=== PATIENT | female | born 1945 | race Caucasian/White ===

== ENCOUNTER 2016-05-29 20:42 | Inpatient (IN) | payer MEDICARE, OTHER ==
[~2016-05-29] VITALS: Ht 154.9 cm; Wt 93.0 kg
[~2016-05-29 20:42] MED LIST: BACTROBAN22 GM TOP; CARDIZEM CD360 MG PO; FISH OIL 1,0001 EACH PO; HYDROCODON-ACE1 EAC4 PO; LEVEMIR100 UNIT/1 SC; LIPITOR10 MG PO; LOPRESSOR 25 MG25 MG PO; NOVOLOG 10100 UNITS/ SC; PRILOSEC20 MG PO; TRICOR145 MG PO; VANCOMYCIN750 MG/150 IV; VITAMIN D1000 UNI1 PO; ZESTRIL10 MG PO; ZOFRAN4 MG PO; ZOLOFT100 MG PO
[2016-05-29 23:39] LABS: HEMOGLOBIN 12.7 gm/dl (12.3-15.3); RED BLOOD COUNT 4.26 M/UL (4.00-5.10); WHITE BLOOD COUNT 18.8 K/UL (4.5-11.0)
[2016-05-30] MEDS ORDERED: COZAAR50 MG PO (11:45)
[2016-05-31 05:45] LABS: HEMOGLOBIN 11.5 gm/dl (12.3-15.3); WHITE BLOOD COUNT 16.5 K/UL (4.5-11.0)
[2016-05-31 05:50] LABS: RED BLOOD COUNT 3.8 M/UL (4.00-5.10)
[2016-06-01 06:05] LABS: HEMOGLOBIN 10.6 gm/dl (12.3-15.3); RED BLOOD COUNT 3.62 M/UL (4.00-5.10); WHITE BLOOD COUNT 12.8 K/UL (4.5-11.0)
[2016-06-02] MEDS ORDERED: LEVAQUIN500 MG PO (15:38)
== END 2016-06-02 18:00 | disposition home or self-care (01) | DRG 193 ==
LOC: ER1 20:42 → MED SURG 4 05-30 08:52 → ZEROF 05-30 08:52 → MED SURG 4 05-30 20:20
PROVIDERS: Emergency Medicine; Family Medicine; ADMIT Internal Medicine Pulmonary Disease
DX: J18.9 Pneumonia, unspecified organism (principal); J96.01 Acute respiratory failure with hypoxia; N17.9 Acute kidney failure, unspecified; E87.6 Hypokalemia; E11.65 Type 2 diabetes mellitus with hyperglycemia; I12.9 Hypertensive chronic kidney disease with stage 1 through stage 4 chronic kidney disease, or unspecified chronic kidney disease; N18.3 Chronic kidney disease, stage 3 (moderate); G47.33 Obstructive sleep apnea (adult) (pediatric); E78.5 Hyperlipidemia, unspecified; E66.9 Obesity, unspecified; Z68.38 Body mass index [BMI] 38.0-38.9, adult; Z87.891 Personal history of nicotine dependence; Z79.82 Long term (current) use of aspirin; Z79.4 Long term (current) use of insulin; Z79.899 Other long term (current) drug therapy; Z88.3 Allergy status to other anti-infective agents; Z88.0 Allergy status to penicillin; Z88.8 Allergy status to other drugs, medicaments and biological substances; Z90.710 Acquired absence of both cervix and uterus; Z90.49 Acquired absence of other specified parts of digestive tract; Z98.890 Other specified postprocedural states; Z82.49 Family history of ischemic heart disease and other diseases of the circulatory system; Z83.3 Family history of diabetes mellitus
CPT/HCPCS: 36415; 36600; 71010; 71020; 71250; 80048; 80053; 82803; 82962; 83036; 83605; 83880; 84443; 84484; 85025; 85027; 85610; 85730; 87040; 87070; 87205; 93005; 94640; 94664; 96365; 96366; 96375; 96376; 99285; J1815; J1956; J2405; J7030; Q0162

== ENCOUNTER → 2016-06-22 | Outpatient (CLI) | payer MEDICARE, OTHER ==
[~2016-06-22] MED LIST changes: +COZAAR50 MG PO; +LEVAQUIN500 MG PO
== END ==
LOC: RAD 10:42
DX: J18.9 Pneumonia, unspecified organism (principal)
CPT/HCPCS: 71020

== ENCOUNTER → 2020-06-14 | Outpatient (CLI) | payer MEDICARE, OTHER ==
[~2020-06-14] MED LIST changes: +ASPIRIN81 MG PO; +ATORVASTATIN CA20 MG PO; +LASIX40 MG PO; +PULMICORT FLEX90 MCG INH; +REGLAN10 MG PO; +VENTOLIN HFA 66.7 GM INH
== END ==
LOC: WCC 09:00
DX: E11.628 Type 2 diabetes mellitus with other skin complications (principal); I89.0 Lymphedema, not elsewhere classified; E11.40 Type 2 diabetes mellitus with diabetic neuropathy, unspecified; E66.01 Morbid (severe) obesity due to excess calories
CPT/HCPCS: G0463

== ENCOUNTER 2020-08-14 00:28 | Emergency (ER) | payer MEDICARE, OTHER ==
[~2020-08-14 00:28] MED LIST changes: -REGLAN10 MG PO
[2020-08-14 01:50] LABS: HEMOGLOBIN 13.9 gm/dl (12.3-15.3); RED BLOOD COUNT 4.65 M/UL (4.00-5.10); WHITE BLOOD COUNT 10.8 K/UL (4.5-11.0)
[2020-08-14] MEDS ORDERED: REGLAN10 MG PO (06:09)
== END 2020-08-14 06:20 | disposition home or self-care (01) ==
LOC: ER1 00:28
PROVIDERS: Student in an Organized Health Care Education/Training Program
DX: R11.2 Nausea with vomiting, unspecified (principal); R19.7 Diarrhea, unspecified; E11.9 Type 2 diabetes mellitus without complications; I10 Essential (primary) hypertension; Z90.49 Acquired absence of other specified parts of digestive tract; Z88.0 Allergy status to penicillin; Z88.1 Allergy status to other antibiotic agents; Z20.822 Contact with and (suspected) exposure to COVID-19
CPT/HCPCS: 0240U; 36600; 71045; 80053; 81001; 82550; 82553; 82803; 82962; 83605; 83690; 83735; 83874; 83880; 84100; 84484; 85025; 93005; 94760; 96374; 96375; 99285; J2405; J2765; Q9965

== ENCOUNTER 2021-02-09 11:13 | Inpatient (IN) | payer MEDICARE, OTHER ==
[~2021-02-09] VITALS: Ht 157.5 cm; Wt 93.0 kg
[~2021-02-09 11:13] MED LIST changes: +OMEPRAZOLE20 MG PO; -PRILOSEC20 MG PO; +REGLAN10 MG PO
[2021-02-09] MEDS ORDERED: ASPIRIN81 MG PO (12:11)
[2021-02-09] MEDS ORDERED: DILTIAZEM ER180 M2 PO (12:12)
[2021-02-09] MEDS ORDERED: JANUVIA100 MG PO (12:12)
[2021-02-09] MEDS ORDERED: TRAVOPROST2.5 ML OU (12:13)
[2021-02-09] MEDS ORDERED: LORATADINE10 MG PO (12:13)
[2021-02-09] MEDS ORDERED: ZINC50 M1 PO (12:14)
[2021-02-09] MEDS ORDERED: MAGNESIUM OXID420 MG PO (12:14)
[2021-02-09] MEDS ORDERED: VITAMIN C250 MG PO (12:15)
[2021-02-09] MEDS ORDERED: [UNRECOGNIZED DRUG - CODE] PO (12:17)
[2021-02-09 12:18] LABS: HEMOGLOBIN 13.6 gm/dl (12.3-15.3); RED BLOOD COUNT 4.51 M/UL (4.00-5.10); WHITE BLOOD COUNT 9.7 K/UL (4.5-11.0)
[2021-02-09] MEDS ORDERED: HYDRALAZINE HCL50 MG PO (12:18)
[2021-02-09] MEDS ORDERED: VITAMIN D350 MCG PO (12:18)
[2021-02-09] MEDS ORDERED: SPIRONOLACTONE25 MG PO (12:19)
[2021-02-09] MEDS ORDERED: VITAMIN D31250 MCG PO (12:19)
[2021-02-09] MEDS ORDERED: ISOSORBIDE MONO30 MG PO (12:19)
[2021-02-09] MEDS ORDERED: FARXIGA5 MG PO (12:20)
[2021-02-09] MEDS ORDERED: DULOXETINE HCL60 MG PO (12:20)
[2021-02-09] MEDS ORDERED: OXYBUTYNIN CHLOR5 MG PO (12:20)
[2021-02-09] MEDS ORDERED: HUMALOG100 UNIT/1 SQ (12:22)
[2021-02-09] MEDS ORDERED: V-GO 401 EACH MC (12:23)
[2021-02-09 13:12] LABS: BUN/CREATININE RATIO 11 (0-10)
[2021-02-10 07:26] LABS: HEMOGLOBIN 13.2 gm/dl (12.3-15.3); RED BLOOD COUNT 4.45 M/UL (4.00-5.10); WHITE BLOOD COUNT 7.5 K/UL (4.5-11.0)
--- NOTE | 2021-02-10 18:24 | NUR ---
SPOKE WITH DR JONES RELATED TO ELEVATED BLOOD GLUCOSE READINGS. PATIENT AGREES WITH REMOVING INSULIN PUMP AND USING SLIDING SCALE WHILE IN THE HOSPITAL. NEW ORDERS NOTED.
[2021-02-11] MEDS ORDERED: DECADRON6 MG PO (10:07)
== END 2021-02-11 18:33 | disposition home health service (06) | DRG 177 ==
LOC: ER1 11:13 → CDU 15:21 → M/S 17:35
PROVIDERS: Emergency Medicine; Physician Assistant Medical; ADMIT Internal Medicine
PROC: XW033E5 Introduction of Remdesivir Anti-infective into Peripheral Vein, Percutaneous Approach, New Technology Group 5 (ICD-10-PCS; principal; 2021-02-09)
PROC: 3E0333Z Introduction of Anti-inflammatory into Peripheral Vein, Percutaneous Approach (ICD-10-PCS; 2021-02-09)
PROC: 8E0ZXY6 Isolation (ICD-10-PCS; 2021-02-09)
PROC: 3E02340 Introduction of Influenza Vaccine into Muscle, Percutaneous Approach (ICD-10-PCS; 2021-02-09)
DX: U07.1 COVID-19 (principal); J12.82 Pneumonia due to coronavirus disease 2019; J96.01 Acute respiratory failure with hypoxia; N17.9 Acute kidney failure, unspecified; E87.6 Hypokalemia; E86.0 Dehydration; E03.9 Hypothyroidism, unspecified; E11.9 Type 2 diabetes mellitus without complications; E89.0 Postprocedural hypothyroidism; Z23 Encounter for immunization; E66.9 Obesity, unspecified; K21.9 Gastro-esophageal reflux disease without esophagitis; E78.5 Hyperlipidemia, unspecified; Z87.01 Personal history of pneumonia (recurrent); Z88.0 Allergy status to penicillin; Z88.1 Allergy status to other antibiotic agents; Z79.4 Long term (current) use of insulin; Z90.49 Acquired absence of other specified parts of digestive tract; Z90.710 Acquired absence of both cervix and uterus; Z82.49 Family history of ischemic heart disease and other diseases of the circulatory system; Z83.3 Family history of diabetes mellitus; Z79.82 Long term (current) use of aspirin; Z99.81 Dependence on supplemental oxygen; Z68.37 Body mass index [BMI] 37.0-37.9, adult
CPT/HCPCS: 36415; 36600; 71045; 80048; 80053; 82550; 82553; 82728; 82803; 82962; 83605; 83735; 83874; 83880; 84132; 84484; 85025; 85027; 85379; 86140; 87040; 90686; 93005; 94664; 94760; 96374; 99284; G0008; J1100; J1650; J7030; J7040; U0002

== ENCOUNTER 2021-02-14 21:04 | Emergency (ER) | payer MEDICARE, OTHER ==
[~2021-02-14 21:04] MED LIST changes: +DECADRON6 MG PO; +DILTIAZEM ER180 M2 PO; +DULOXETINE HCL60 MG PO; +FARXIGA5 MG PO; +HUMALOG100 UNIT/1 SQ; +HYDRALAZINE HCL50 MG PO; +ISOSORBIDE MONO30 MG PO; +JANUVIA100 MG PO; +LORATADINE10 MG PO; +MAGNESIUM OXID420 MG PO; +OXYBUTYNIN CHLOR5 MG PO; +SPIRONOLACTONE25 MG PO; +TRAVOPROST2.5 ML OU; +V-GO 401 EACH MC; +VITAMIN C250 MG PO; +VITAMIN D31250 MCG PO; +VITAMIN D350 MCG PO; +ZINC50 M1 PO; +[UNRECOGNIZED DRUG - CODE] PO
[2021-02-14 22:47] LABS: HEMOGLOBIN 14.4 gm/dl (12.3-15.3); RED BLOOD COUNT 4.86 M/UL (4.00-5.10); WHITE BLOOD COUNT 11.5 K/UL (4.5-11.0)
[2021-02-15] MEDS ORDERED: PROVENTIL HFA6.7 GM INH (03:01)
== END 2021-02-16 22:45 ==
LOC: ER1 21:04
PROVIDERS: Physician Assistant
DX: U07.1 COVID-19 (principal); E11.9 Type 2 diabetes mellitus without complications; Z79.4 Long term (current) use of insulin; I10 Essential (primary) hypertension; Z23 Encounter for immunization; E03.9 Hypothyroidism, unspecified; Z90.49 Acquired absence of other specified parts of digestive tract; Z90.710 Acquired absence of both cervix and uterus; Z88.0 Allergy status to penicillin; Z88.1 Allergy status to other antibiotic agents
CPT/HCPCS: 36600; 71045; 80053; 82550; 82553; 82803; 82962; 83874; 84484; 85025; 85379; 85610; 85730; 93005; 96374; 97110; 97161; 97166; 97535; 99285; J1100; M0243; Q9967